=== PATIENT | male | born 1975 ===

== ENCOUNTER 2017-01-31 15:20 | Emergency (ER) | payer BC ==
[2017-01-31 15:38] VITALS: BP 117/80
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
[2017-01-31] MEDS ORDERED: Diphtheria,Pertussis(Acell),Tetanus Vaccine 0.5 ML SDV IM ONE (16:35)
[2017-01-31] MEDS ORDERED: Doxycycline 100 MG Cap PO ONE (17:14)
== END 2017-01-31 17:50 | disposition home or self-care (01) ==
LOC: JD.ED 15:20
DX: T22.212A Burn of second degree of left forearm, initial encounter (principal); I10 Essential (primary) hypertension; E11.9 Type 2 diabetes mellitus without complications; E66.9 Obesity, unspecified; E78.00 Pure hypercholesterolemia, unspecified; Z79.82 Long term (current) use of aspirin; Z79.84 Long term (current) use of oral hypoglycemic drugs; Z79.899 Other long term (current) drug therapy; Z87.891 Personal history of nicotine dependence; Z23 Encounter for immunization; Z68.29 Body mass index [BMI] 29.0-29.9, adult; X15.8XXA Contact with other hot household appliances, initial encounter
CPT/HCPCS: 16020; 90471; 90715; 99283; A9270